=== PATIENT | male | born 1975 | race Hispanic/Latino ===

== ENCOUNTER 2016-10-31 06:34 | Observation (INO) | payer MEDICAID ==
[2016-10-31 06:38] VITALS: BMI 26.6
[2016-10-31] MEDS ORDERED: Sodium Chloride 0.9% 1,000 ML IV STA (07:45)
[2016-10-31] MEDS ORDERED: Morphine 4 mg/ml ISec IVP STA ×2 (07:45→11:23)
--- NOTE | 2016-10-31 07:48 | ED PDOC ---
Arrival/HPI - General Chief Complaint: Abdominal Pain Time Seen by Provider: 10/31/16 07:37 Historian: Patient - History of Present Illness Narrative History of Present Illness (Text): 10/31/16 07:40 Saud Allen Jr is a 41 year old male, whose past medical history includes depression, hypertension, and reflux, who presents to the emergency department complaining of diffuse abdominal pain today. Patient states that he cannot move due to his pain. Patient also notes that he found a little blood in his stool and has been vomiting intermittently. Patient denies any recent travels, alcohol ingestion, fevers, or any other complaint at this time. PMD: Dr. Beverly Time/Duration: 4-6 hours Symptom Onset: Gradual Symptom Course: Unchanged Severity Level: Mild Activities at Onset: Rest Context: Home Past Medical History - Provider Review Nursing Documentation Reviewed: Yes - Infectious Disease Hx of Infectious Diseases: None - Tetanus Immunization Tetanus Immunization: Unknown - Past Medical History Past Medical History: No Previous - Cardiac Hx Pacemaker: No - Pulmonary Hx Respiratory Disorders: No Hx Tuberculosis: No - Neurological Hx Paralysis: No - HEENT Hx HEENT Disorder: No - Renal Hx Renal Disorder: No - Endocrine/Metabolic Hx Endocrine Disorders: No - Hematological/Oncological Hx Blood Transfusions: No Hx Blood Transfusion Reaction: No - Integumentary Hx Dermatological Disorder: No - Musculoskeletal/Rheumatological Hx Musculoskeletal Disorders: Yes (JOINT PAIN) - Gastrointestinal Hx Gastrointestinal Disorders: Yes Hx Gastroesophageal Reflux: Yes - Genitourinary/Gynecological Hx Genitourinary Disorders: No Hx Sexually Transmitted Diseases: No - Psychiatric Hx Emotional Abuse: No Hx Physical Abuse: No Hx Substance Use: No - Surgical History Other/Comment: facial cyst removed - Anesthesia Hx Anesthesia Reactions: No Hx Malignant Hyperthermia: No - Suicidal Assessment Feels Threatened In Home Enviroment: No Family/Social History - Physician Review Nursing Documentation Reviewed: Yes Family/Social History: No Known Family HX Smoking Status: Current Some Days Smoker Hx Alcohol Use: No (PAST ABUSE; QUIT 10/2013) Amount per day: 2 Hx Substance Use: No Substance used: marijuana Hx Substance Use Treatment: No Allergies/Home Meds Allergies/Adverse Reactions: Allergies Sulfa (Sulfonamide Antibiotics) Allergy (Verified 10/31/16 06:38) RASH Home Medications: Home Meds Medication Instructions Recorded Confirmed Lisinopril 10 mg PO DAILY 05/30/14 08/15/15 Doxepin HCl [Doxepin HCl] 150 mg PO QPM 01/10/15 08/15/15 Lamotrigine [Lamictal Odt] 200 mg PO QAM 01/10/15 08/15/15 Mirtazapine 45 mg PO HS 01/10/15 08/15/15 Omeprazole [Prilosec] 40 mg PO DAILY 01/10/15 08/15/15 Zitrasidone 80 mg PO HS 01/10/15 08/15/15 Montelukast [Singulair] 10 mg PO HS 08/15/15 08/15/15 chlorproMAZINE [chlorpromazine HCl] 100 mg PO HS 08/15/15 08/15/15 Review of Systems - Review of Systems Constitutional: absent: Fevers, Night Sweats Eyes: absent: Vision Changes ENT: absent: Hearing Changes Respiratory: absent: SOB, Cough Gastrointestinal: Abdominal Pain, Vomiting, Hematochezia Musculoskeletal: absent: Arthralgias Skin: absent: Rash Neurological: absent: Headache Endocrine: absent: Diaphoresis Psychiatric: absent: Depression Physical Exam Vital Signs Reviewed: Yes Vital Signs Temp Pulse Resp BP Pulse Ox 10/31/16 09:12 90 18 126/75 98 10/31/16 07:13 97.7 F 91 H 16 146/99 H 96 Temperature: Afebrile Blood Pressure: Hypertensive Pulse: Tachycardic Respiratory Rate: Normal Appearance: Positive for: Well-Appearing, Non-Toxic, Comfortable Pain Distress: None Mental Status: Positive for: Alert and Oriented X 3 - Systems Exam Head: Present: Atraumatic, Normocephalic Pupils: Present: PERRL Extroacular Muscles: Present: EOMI Conjunctiva: Present: Normal Mouth: Present: Moist Mucous Membranes Neck: Present: Normal Range of Motion Respiratory/Chest: Present: Clear to Auscultation, Good Air Exchange. No: Respiratory Distress, Accessory Muscle Use Cardiovascular: Present: Regular Rate and Rhythm, Normal S1, S2. No: Murmurs Abdomen: Present: Tenderness (Diffuse tenderness with gaurding, mostly to the left), Guarding. No: Rebound Back: Present: Normal Inspection Upper Extremity: Present: Normal Inspection. No: Cyanosis, Edema Lower Extremity: Present: Normal Inspection. No: Edema Neurological: Present: GCS=15, CN II-XII Intact, Speech Normal Skin: Present: Warm, Dry, Normal Color. No: Rashes Psychiatric: Present: Alert, Oriented x 3, Normal Insight, Normal Concentration Medical Decision Making - Lab Interpretations Lab Results: 10/31/16 08:00 10/31/16 08:00 Lab Results 10/31/16 08:00: WBC 14.9 H, RBC 5.54, Hgb 16.5, Hct 45.9, MCV 82.9, MCH 29.8, MCHC 35.9, RDW 13.4, Plt Count 195, MPV 12.5 H, Gran % 63.3, Lymph % (Auto) 27.6 , Crenshaw % (Auto) 7.6 H, Eos % (Auto) 1.3 L, Baso % (Auto) 0.2, Gran # 9.44 H, Lymph # 4.1 H, Crenshaw # 1.1 H, Eos # 0.2, Baso # 0.03, Sodium 141, Potassium 3.7, Chloride 97 L, Carbon Dioxide 29, Anion Gap 19, BUN 21, Creatinine 0.9, Est GFR ( Amer) > 60, Est GFR (Non-Af Amer) > 60, Random Glucose 151 H, Calcium 10.5, Total Bilirubin 0.5, AST 37, ALT 30, Alkaline Phosphatase 109, Total Protein 8.9 H, Albumin 4.7, Globulin 4.2, Albumin/Globulin Ratio 1.1, Lipase 54 - RAD Interpretation Radiology Orders: 10/31/16 07:47 ABD & PELVIS IV CONTRAST ONLY [CT] Stat - Medication Orders Current Medication Orders: Ciprofloxacin (Cipro 400mg/200ml Dsw) 200 mls @ 133.3 mls/hr IVPB STAT STA PRN Reason: Protocol Stop: 10/31/16 12:28 Last Admin: 10/31/16 11:15 Dose: 133.3 MLS/HR eMAR Start Stop Document 10/31/16 11:15 [facility] (Rec: 10/31/16 11:15 [facility] [id number]) Intravenous Solution Start Date 10/31/16 Start Time 11:15 End Date 10/31/16 End time 12:45 Total Infusion Time 90 Discontinued Medications Famotidine (Pepcid) 20 mg IVP STAT STA Stop: 10/31/16 07:46 Last Admin: 10/31/16 07:52 Dose: 20 MG IVP Administration Document 10/31/16 07:52 [facility] (Rec: 10/31/16 07:52 [facility] [id number]) Charges for Administration # of IVP Administrations 1 Sodium Chloride (Sodium Chloride 0.9%) 1,000 mls @ 1,000 mls/hr IV .Q1H STA Stop: 10/31/16 08:44 Last Admin: 10/31/16 07:52 Dose: 1,000 MLS/HR eMAR Start Stop Document 10/31/16 07:52 [facility] (Rec: 10/31/16 07:52 [facility] [id number]) Intravenous Solution Start Date 10/31/16 Start Time 07:52 End Date 10/31/16 End time 08:55 Total Infusion Time 63 Metronidazole (Flagyl) 100 mls @ 100 mls/hr IVPB STAT STA PRN Reason: Protocol Stop: 10/31/16 11:57 Iohexol (Omnipaque 350 100 Ml) Confirm Administered Dose 350 mg .ROUTE .STK-MED ONE Stop: 10/31/16 09:29 Morphine Sulfate (Morphine) 4 mg IVP STAT STA Stop: 10/31/16 07:46 Last Admin: 10/31/16 07:52 Dose: 4 MG MAR Pain Assessment Document 10/31/16 07:52 [facility] (Rec: 10/31/16 07:52 [facility] [id number]) Pain Reassessment Is this a pain reassessment? Yes Presence of Pain Presence of Pain Yes Pain Scale Used Pain Scale Used Numeric Location Pain Location Body Site Abdomen Description Intensity of Pain at present 5 IVP Administration Document 10/31/16 07:52 [facility] (Rec: 10/31/16 07:52 [facility] [id number]) Charges for Administration # of IVP Administrations 1 Morphine Sulfate (Morphine) 4 mg IVP STAT STA Stop: 10/31/16 11:24 Last Admin: 10/31/16 11:31 Dose: 4 MG MAR Pain Assessment Document 10/31/16 11:31 [facility] (Rec: 10/31/16 11:31 [facility] [id number]) Pain Reassessment Is this a pain reassessment? Yes Sleep Is patient sleeping during reassessment? No Presence of Pain Presence of Pain Yes Pain Scale Used Pain Scale Used Numeric Location Pain Location Body Site Abdomen Description Intensity of Pain at present 7 IVP Administration Document 10/31/16 11:31 [facility] (Rec: 10/31/16 11:31 [facility] [id number]) Charges for Administration # of IVP Administrations 1 ED OBSERVATION Date of observation admission: 10/31/16 Time of observation admission: 07:49 - Observation admission statement Patient is being placed in observation because:: Impression: 41 year old male complaining of diffuse abdominal pain today Differential Diagnosis included but are not limited to: Abdominal pain vs. r/o Diverticulitis, diverticulosis - Goals of Observation Goals of observation are:: Plan: -- Abdomen and Pelvis CT w/ IV Contrast only -- Labs -- Morphine, Pepcid -- IV Fluids - Progress Note Progress Note: 10/31/16 10:48 CT Abdomen and Pelvis with contrast Creator : WILLI LUX MD FINDINGS: LOWER THORAX:There is linear atelectasis/scarring in the lingula. There is bibasilar subsegmental atelectasis. LIVER:Normal in size and homogeneous enhancement. No gross lesion or ductal dilatation. GALLBLADDER AND BILE DUCTS:No calcified gallstones. PANCREAS:Normal in size and homogeneous enhancement. No gross lesion or ductal dilatation. SPLEEN:Normal in size without focal lesion. ADRENALS:Normal in size without discrete nodule. KIDNEYS AND URETERS:Normal in size and homogeneous enhancement. No hydronephrosis. No solid mass. VASCULATURE:Normal in caliber. No aortic aneurysm. BOWEL:The small bowel loops are normal in caliber. There is mild sigmoid diverticulosis. There is apparent mild mural thickening in the sigmoid colon. No evidence of bowel dilatation or obstruction. APPENDIX:Normal appendix. PERITONEUM:No free fluid. No free air. LYMPH NODES:No enlarged lymph nodes. BLADDER:Normal in appearance. REPRODUCTIVE:Normal. BONES:No acute fracture. There are multilevel Schmorl's nodes in the lower thoracic spine. OTHER FINDINGS:There are bilateral small fat containing inguinal hernias. IMPRESSION: Findings are concerning for mild acute sigmoid diverticulitis. No evidence of perforation or abscess 10/31/16 11:16 Patient's pain improved with pain medication but is not having pain again. Morphine IV ordered. CT shows Diverticulitis. Patient has an elevated WBC. Will admit for diverticulitis. Case discussed with Dr. Magana who will admit to the service. - Scribe Statement The provider has reviewed the documentation as recorded by the Rosio Ta Provider Scribe Attestation: All medical record entries made by the Elkinibe were at my direction and personally dictated by me. I have reviewed the chart and agree that the record accurately reflects my personal performance of the history, physical exam, medical decision making, and the department course for this patient. I have also personally directed, reviewed, and agree with the discharge instructions and disposition. Disposition/Present on Arrival - Present on Arrival Any Indicators Present on Arrival: No History of DVT/PE: No History of Uncontrolled Diabetes: No Urinary Catheter: No History of Decub. Ulcer: No History Surgical Site Infection Following: None - Disposition Have Diagnosis and Disposition been Completed?: Yes Diagnosis: Diverticulitis Disposition Time: 11:17 Patient Plan: Admission Patient Problems: Current Active Problems Problem Status Diagnosed Diverticulitis Acute Condition: FAIR
[2016-10-31 08:08] LABS: ADD MANUAL DIFF? NO
[2016-10-31 08:21] LABS: BASO # 0.03 [, K/mm3] (0.0-2.0); BASO % 0.2 % (0.0-3.0); EOS # 0.2 (0.0-0.7); EOS % 1.3 % (1.5-5.0); GRAN # 9.44 (1.4-6.5); GRAN % 63.3 % (50.0-68.0); HEMATOCRIT 45.9 % (42.0-52.0); LYMPH # 4.1 (1.2-3.4); LYMPH % 27.6 % (22.0-35.0); MEAN CELL VOLUME 82.9 fL (80.0-105.0); MEAN CORPUSCULAR HEMOGLOBIN 29.8 pg (25.0-35.0); MEAN CORPUSCULAR HGB CONC 35.9 g/dl (31.0-37.0); MEAN PLATELET VOLUME 12.5 fl (7.0-11.0); MONO # 1.1 (0.1-0.6); MONO % 7.6 % (1.0-6.0); PLATELET COUNT 195 [, 10^3/uL] (120.0-450.0); RED CELL DISTRIBUTION WIDTH 13.4 % (11.5-14.5); WHITE BLOOD COUNT 14.9 [, 10^3/ul] (4.5-11.0)
[2016-10-31 08:35] LABS: ALB/GLOB RATIO 1.1 (1.1-1.8); ALKALINE PHOSPHATASE 109 U/L (38-133); ALT/SGPT 30 U/L (7-56); AST/SGOT 37 U/L (15-59); BILIRUBIN,TOTAL 0.5 mg/dL (0.2-1.3); BLOOD UREA NITROGEN 21 mg/dL (7-21); CALCIUM 10.5 mg/dL (8.4-10.5); CARBON DIOXIDE 29 mmol/L (21-33); CHLORIDE 97 mmol/L (98-107); GFR AFRICAN-AMERICAN > 60; GLUCOSE,RANDOM 151 mg/dL (70-110); LIPASE 54 U/L (23-300); POTASSIUM 3.7 mmol/L (3.6-5.0); SODIUM 141 mmol/L (132-148); TOTAL PROTEIN 8.9 g/dL (5.8-8.3)
[2016-10-31] MEDS ORDERED: Iohexol 350 MG/100 ML VIAL ONE (09:28)
--- NOTE | 2016-10-31 10:42 | CT ---
PROCEDURE: CT Abdomen and Pelvis with contrast HISTORY: Left abdominal pain r/o diverticulitis COMPARISON: None. TECHNIQUE: Multidetector CT scan of the abdomen and pelvis was performed after intravenous administration of contrast. Oral contrast was not administered. Coronal and sagittal reformatted images were obtained. Contrast dose: 100 mL Omnipaque 350 Radiation dose: Total exam DLP = 675.14 mGy-cm. FINDINGS: LOWER THORAX: There is linear atelectasis/scarring in the lingula. There is bibasilar subsegmental atelectasis. LIVER: Normal in size and homogeneous enhancement. No gross lesion or ductal dilatation. GALLBLADDER AND BILE DUCTS: No calcified gallstones. PANCREAS: Normal in size and homogeneous enhancement. No gross lesion or ductal dilatation. SPLEEN: Normal in size without focal lesion. ADRENALS: Normal in size without discrete nodule. KIDNEYS AND URETERS: Normal in size and homogeneous enhancement. No hydronephrosis. No solid mass. VASCULATURE: Normal in caliber. No aortic aneurysm. BOWEL: The small bowel loops are normal in caliber. There is mild sigmoid diverticulosis. There is apparent mild mural thickening in the sigmoid colon. No evidence of bowel dilatation or obstruction. APPENDIX: Normal appendix. PERITONEUM: No free fluid. No free air. LYMPH NODES: No enlarged lymph nodes. BLADDER: Normal in appearance. REPRODUCTIVE: Normal. BONES: No acute fracture. There are multilevel Schmorl's nodes in the lower thoracic spine. OTHER FINDINGS: There are bilateral small fat containing inguinal hernias. IMPRESSION: Findings are concerning for mild acute sigmoid diverticulitis. No evidence of perforation or abscess.
[2016-10-31] MEDS ORDERED: Ciprofloxacin 400mg/200ml D5W 200 ML IVPB STA (10:58)
[2016-10-31] MEDS ORDERED: metroNIDAZOLE IV 500 mg/100 ml 100 ML IVPB STA (10:58)
--- NOTE | 2016-10-31 12:15 | CP.PCM.HP ---
<Suhail Quintanilla - Last Filed: 10/31/16 20:25> History of Present Illness - History of Present Illness History of Present Illness: 41M with pmh of depression, psychosis, alcohol abuse presents with sharp, diffuse lower abdominal pain since this morning that woke him up. The pain is constant and does not radiate. He has had this pain before, but it resolved on its own. He also complains of nausea, vomiting and a BM with bright blood mixed in with his stool. Stool guaic was positive in the ED. Pt. states he has not had a drink of alcohol in 3 years. He denies PERALTA/F/C/CP/SOB/dysuria. PMD: Dr. Beverly [facility] [place] PMH: Depression, Psychosis SH: -not currently working -Tob 1/2 pack/day/20 years -Alc quit 3 years ago -Drugs denies Present on Admission - Present on Admission Any Indicators Present on Admission: No Review of Systems - Constitutional Constitutional: absent: Fever, Headache, Night Sweats - EENT Eyes: absent: Change in Vision Ears: absent: Decreased Hearing Nose/Mouth/Throat: Nasal Congestion. absent: Epistaxis - Cardiovascular Cardiovascular: absent: Chest Pain, Chest Pain at Rest, Dyspnea - Respiratory Respiratory: absent: Hemoptysis, Dyspnea on Exertion, Wheezing, Chest Congestion - Gastrointestinal Gastrointestinal: Abdominal Pain (lower abdominal pain that radiates to his back.), Constipation, Diarrhea. absent: Hematochezia, Loose Stools - Genitourinary Genitourinary: absent: Difficulty Urinating, Dysuria, Flank Pain, Pyuria - Musculoskeletal Musculoskeletal: absent: Back Pain, Neck Pain, Numbness, Tingling - Integumentary Integumentary: absent: Rash, Skin Pain, Jaundice - Neurological Neurological: absent: Dizziness - Psychiatric Psychiatric: Depression - Endocrine Endocrine: absent: Fatigue, Palpitations, Polydipsia, Polyuria Past Patient History - Infectious Disease Hx of Infectious Diseases: None - Tetanus Immunizations Tetanus Immunization: Unknown - Past Medical History & Family History Past Medical History?: Yes - Past Social History Smoking Status: Heavy Smoker > 10 Cigarettes Daily Alcohol: None (quit 3 years ago) Drugs: Denies - CARDIAC Hx Pacemaker: No - PULMONARY Hx Respiratory Disorders: No Hx Tuberculosis: No - NEUROLOGICAL Hx Paralysis: No - HEENT Hx HEENT Problems: No - RENAL Hx Chronic Kidney Disease: No - ENDOCRINE/METABOLIC Hx Endocrine Disorders: No - HEMATOLOGICAL/ONCOLOGICAL Hx Blood Transfusions: No Hx Blood Transfusion Reaction: No - INTEGUMENTARY Hx Dermatological Problems: No - MUSCULOSKELETAL/RHEUMATOLOGICAL Hx Musculoskeletal Disorders: Yes (JOINT PAIN) - GASTROINTESTINAL Hx Gastrointestinal Disorders: Yes Hx Gastroesophageal Reflux: Yes - GENITOURINARY/GYNECOLOGICAL Hx Genitourinary Disorders: No Hx Sexually Transmitted Disorders: No - PSYCHIATRIC Hx Depression: Yes Hx Emotional Abuse: No Hx Psychosis: Yes Hx Physical Abuse: No Hx Substance Use: No - SURGICAL HISTORY Other/Comment: facial cyst removed - ANESTHESIA Hx Anesthesia Reactions: No Hx Malignant Hyperthermia: No Meds Home Medications: Home Medication List Medication Instructions Recorded Confirmed Type Ciprofloxacin HCl [Cipro] 500 mg PO BID #10 tablet 11/01/16 Rx Metronidazole [Flagyl] 500 mg PO Q8 #15 tablet 11/01/16 Rx Pantoprazole Sodium [Protonix] 40 mg PO DAILY #30 ect 11/01/16 Rx Allergies/Adverse Reactions: Allergies Allergy/AdvReac Type Severity Reaction Status Date / Time Sulfa (Sulfonamide Allergy RASH Verified 10/31/16 15:35 Antibiotics) Physical Exam - Constitutional Appears: No Acute Distress - Head Exam Head Exam: ATRAUMATIC, NORMOCEPHALIC - Eye Exam Eye Exam: EOMI - ENT Exam ENT Exam: Mucous Membranes Moist - Respiratory Exam Respiratory Exam: Clear to Auscultation Bilateral, NORMAL BREATHING PATTERN. absent: Rhonchi, Wheezes - Cardiovascular Exam Cardiovascular Exam: REGULAR RHYTHM, RRR, +S1, +S2 - GI/Abdominal Exam GI & Abdominal Exam: Guarding, Normal Bowel Sounds, Soft, Tenderness (lower abdomen). absent: Rebound - Extremities Exam Extremities exam: Positive for: full ROM. Negative for: joint swelling, pedal edema, tenderness - Back Exam Back exam: absent: CVA tenderness (L), CVA tenderness (R) - Neurological Exam Neurological exam: Alert, Oriented x3 - Psychiatric Exam Psychiatric exam: Normal Affect, Normal Mood - Skin Skin Exam: Dry, Intact, Normal Color, Warm Results - Vital Signs Recent Vital Signs: Last Vital Signs Temp 97.7 F 10/31/16 07:13 Pulse 90 10/31/16 09:12 Resp 18 10/31/16 09:12 BP 126/75 10/31/16 09:12 Pulse Ox 98 10/31/16 09:12 - Labs Result Diagrams: 10/31/16 08:00 10/31/16 08:00 Assessment & Plan - Assessment and Plan (Free Text) Assessment: 41M presents with lower abdominal pain that woke him up this morning. Diverticulitis vs Diverticulosis vs Pancreatitis Plan: Abdominal Pain -GI Consult - Dr. Mendez -CT Abd/Pelvis with IV contrast -concerning for mild acute sigmoid diverticulitis, please see full report -AST, ALT, Alk Phos, Lipase all within normal limits -Morphine 2mg q4 -IV NS 100mls/hr -Zofran 4mg q4 -Liquid Diet Leukocytosis -Blood Cultures -UA -Metronidazole IV q8 -Ceftriaxone IV Psychosis/Depression -Mirtazapine 45mg QHS -Lamotrigine 200mg QHS -Quetiapine 600mg QHS PPX -GI Pepcid -DVT SCD's - Date & Time Date: 10/31/16 Time: 01:35 <Rayna Magana - Last Filed: 11/01/16 11:29> Results - Vital Signs Recent Vital Signs: Last Vital Signs Temp 97.7 F 11/01/16 08:00 Pulse 89 11/01/16 08:00 Resp 20 11/01/16 08:00 BP 115/67 11/01/16 08:00 Pulse Ox 97 11/01/16 08:00 - Labs Result Diagrams: 11/01/16 07:45 11/01/16 07:45 Labs: Laboratory Results - last 24 hr 10/31/16 11/01/16 19:40 07:45 WBC 9.3 D RBC 5.32 Hgb 15.3 Hct 43.8 MCV 82.3 MCH 28.8 MCHC 34.9 RDW 13.5 Plt Count 197 MPV 11.6 H Gran % 48.6 L Lymph % (Auto) 41.7 H Loving % (Auto) 7.5 H Eos % (Auto) 1.9 Baso % (Auto) 0.3 Gran # 4.53 Lymph # 3.9 H Loving # 0.7 H Eos # 0.2 Baso # 0.03 Sodium 140 Potassium 3.7 Chloride 103 Carbon Dioxide 27 Anion Gap 14 BUN 10 Creatinine 0.9 Est GFR ( Amer) > 60 Est GFR (Non-Af Amer) > 60 Random Glucose 102 Calcium 8.9 Total Bilirubin 0.8 AST 28 ALT 24 Alkaline Phosphatase 92 Total Protein 7.5 Albumin 4.0 Globulin 3.5 Albumin/Globulin Ratio 1.1 Urine Color Yellow Urine Appearance Clear Urine pH 6.0 Ur Specific Gilbert 1.025 Urine Protein Negative Urine Glucose (UA) Negative Urine Ketones Negative Urine Blood Negative Urine Nitrate Negative Urine Bilirubin Negative Urine Urobilinogen 0.2 Ur Leukocyte Esterase Negative Urine Opiates Screen Positive H Urine Methadone Screen Negative Ur Barbiturates Screen Negative Ur Phencyclidine Scrn Negative Ur Amphetamines Screen Negative U Benzodiazepines Scrn Negative U Oth Cocaine Metabols Negative U Cannabinoids Screen Negative Assessment & Plan - Assessment and Plan (Free Text) Assessment: Attending note; Patient seen and examined with resident in ER. Patient is a 41-year-old male with a history of alcohol abuse, Garrison's esophagus, depression is admitted with left lower quadrant pain. CT consistent with mild acute diverticulitis. Nothing by mouth. IV fluids. Started on IV Rocephin and Flagyl. GI evaluation with Dr. Kearney. Start clear liquid diet and advance as tolerated. Upon discharge the patient will follow up with PMD Dr. Beverly. Follow-up with GI Dr. Kearney for outpatient EGD/colonoscopy if needed. Attending/Attestation - Attestation I have personally seen and examined this patient.: Yes I have fully participated in the care of the patient.: Yes I have reviewed all pertinent clinical information: Yes
--- NOTE | 2016-10-31 12:42 | CP.PCM.HP ---
History of Present Illness - History of Present Illness History of Present Illness: 41M with pmh of c/o sharp abdominal Past Patient History - Infectious Disease Hx of Infectious Diseases: None - Tetanus Immunizations Tetanus Immunization: Unknown - Past Social History Smoking Status: Current Some Days Smoker - CARDIAC Hx Pacemaker: No - PULMONARY Hx Respiratory Disorders: No Hx Tuberculosis: No - NEUROLOGICAL Hx Paralysis: No - HEENT Hx HEENT Problems: No - RENAL Hx Chronic Kidney Disease: No - ENDOCRINE/METABOLIC Hx Endocrine Disorders: No - HEMATOLOGICAL/ONCOLOGICAL Hx Blood Transfusions: No Hx Blood Transfusion Reaction: No - INTEGUMENTARY Hx Dermatological Problems: No - MUSCULOSKELETAL/RHEUMATOLOGICAL Hx Musculoskeletal Disorders: Yes (JOINT PAIN) - GASTROINTESTINAL Hx Gastrointestinal Disorders: Yes Hx Gastroesophageal Reflux: Yes - GENITOURINARY/GYNECOLOGICAL Hx Genitourinary Disorders: No Hx Sexually Transmitted Disorders: No - PSYCHIATRIC Hx Emotional Abuse: No Hx Physical Abuse: No Hx Substance Use: No - SURGICAL HISTORY Other/Comment: facial cyst removed - ANESTHESIA Hx Anesthesia Reactions: No Hx Malignant Hyperthermia: No Meds Allergies/Adverse Reactions: Allergies Allergy/AdvReac Type Severity Reaction Status Date / Time Sulfa (Sulfonamide Allergy RASH Verified 10/31/16 06:38 Antibiotics) Results - Vital Signs Recent Vital Signs: Last Vital Signs Temp 97.7 F 10/31/16 07:13 Pulse 92 H 10/31/16 12:24 Resp 18 10/31/16 12:24 BP 147/85 10/31/16 12:24 Pulse Ox 96 10/31/16 12:24 - Labs Result Diagrams: 10/31/16 08:00 10/31/16 08:00
[2016-10-31] MEDS ORDERED: cefTRIAXone 1 gm 100 ML IVPB SCH (13:00)
[2016-10-31] MEDS: metroNIDAZOLE IV 500 mg/100 ml 100 ML IVPB SCH ×2 (13:59→21:00)
[2016-10-31] MEDS: Sodium Chloride 0.9% 1,000 ML IV SCH (13:59)
[2016-10-31] MEDS: Morphine 2 mg/ml ISec IVP PRN ×2 (15:37→20:01)
[2016-10-31] MEDS ORDERED: Pneumococcal 23-Valent Vaccine IM ONE (16:10)
[2016-10-31] MEDS ORDERED: Influenza Vaccine 45 MCG/0.5 ml IM ONE (16:10)
[2016-10-31 16:35] VITALS: RESP 20
[2016-10-31 21:16] LABS: URINE BILIRUBIN NEGATIVE (NEGATIVE); URINE BLOOD NEGATIVE (NEGATIVE); URINE GLUCOSE (UA) NEGATIVE (NEGATIVE); URINE KETONE NEGATIVE (NEGATIVE); URINE LEUKOCYTE ESTERASE NEGATIVE Leu/uL (NEGATIVE); URINE PROTEIN NEGATIVE mg/dL (<30 mg/dL); URINE UROBILINOGEN 0.2 E.U./dL (<1 E.U./dL)
[2016-10-31 21:19] LABS: URINE APPEARANCE CLEAR (CLEAR); URINE COLOR YELLOW (YELLOW)
[2016-11-01] MEDS: Morphine 2 mg/ml ISec IVP PRN ×2 (00:13→05:49)
[2016-11-01] MEDS: Sodium Chloride 0.9% 1,000 ML IV SCH (01:33)
[2016-11-01] MEDS: metroNIDAZOLE IV 500 mg/100 ml 100 ML IVPB SCH (05:45)
[2016-11-01 08:01] VITALS: BP 115/67; PULSE 89; TEMP 97.7; O2SAT 97
[2016-11-01 08:12] LABS: ADD MANUAL DIFF? NO
[2016-11-01 08:18] LABS: BASO # 0.03 [, K/mm3] (0.0-2.0); BASO % 0.3 % (0.0-3.0); EOS # 0.2 (0.0-0.7); EOS % 1.9 % (1.5-5.0); GRAN # 4.53 (1.4-6.5); GRAN % 48.6 % (50.0-68.0); HEMATOCRIT 43.8 % (42.0-52.0); LYMPH # 3.9 (1.2-3.4); LYMPH % 41.7 % (22.0-35.0); MEAN CELL VOLUME 82.3 fL (80.0-105.0); MEAN CORPUSCULAR HEMOGLOBIN 28.8 pg (25.0-35.0); MEAN CORPUSCULAR HGB CONC 34.9 g/dl (31.0-37.0); MEAN PLATELET VOLUME 11.6 fl (7.0-11.0); MONO # 0.7 (0.1-0.6); MONO % 7.5 % (1.0-6.0); PLATELET COUNT 197 [, 10^3/uL] (120.0-450.0); RED CELL DISTRIBUTION WIDTH 13.5 % (11.5-14.5); WHITE BLOOD COUNT 9.3 [, 10^3/ul] (4.5-11.0)
--- NOTE | 2016-11-01 08:30 | CP.PCM.DIS ---
Provider - Provider Date of Admission: 10/31/16 11:29 Attending physician: Rayna Magana MD Primary care physician: Katherine Beverly DO Consults: KATHIA: Andrea Time Spent in preparation of Discharge (in minutes): 45 Hospital Course - Lab Results Lab Results: Most Recent Lab Values WBC 9.3 10^3/ul (4.5-11.0) D 11/01/16 07:45 RBC 5.32 10^6/uL (3.5-6.1) 11/01/16 07:45 Hgb 15.3 gm/dL (14.0-18.0) 11/01/16 07:45 Hct 43.8 % (42.0-52.0) 11/01/16 07:45 MCV 82.3 fL (80.0-105.0) 11/01/16 07:45 MCH 28.8 pg (25.0-35.0) 11/01/16 07:45 MCHC 34.9 g/dl (31.0-37.0) 11/01/16 07:45 RDW 13.5 % (11.5-14.5) 11/01/16 07:45 Plt Count 197 10^3/uL (120.0-450.0) 11/01/16 07:45 MPV 11.6 fl (7.0-11.0) H 11/01/16 07:45 Gran % 48.6 % (50.0-68.0) L 11/01/16 07:45 Lymph % (Auto) 41.7 % (22.0-35.0) H 11/01/16 07:45 [place] % (Auto) 7.5 % (1.0-6.0) H 11/01/16 07:45 Eos % (Auto) 1.9 % (1.5-5.0) 11/01/16 07:45 Baso % (Auto) 0.3 % (0.0-3.0) 11/01/16 07:45 Gran # 4.53 (1.4-6.5) 11/01/16 07:45 Lymph # 3.9 (1.2-3.4) H 11/01/16 07:45 [place] # 0.7 (0.1-0.6) H 11/01/16 07:45 Eos # 0.2 (0.0-0.7) 11/01/16 07:45 Baso # 0.03 K/mm3 (0.0-2.0) 11/01/16 07:45 Sodium 141 mmol/L (132-148) 10/31/16 08:00 Potassium 3.7 mmol/L (3.6-5.0) 10/31/16 08:00 Chloride 97 mmol/L (98-107) L 10/31/16 08:00 Carbon Dioxide 29 mmol/L (21-33) 10/31/16 08:00 Anion Gap 19 (10-20) 10/31/16 08:00 BUN 21 mg/dL (7-21) 10/31/16 08:00 Creatinine 0.9 mg/dL (0.5-1.4) 10/31/16 08:00 Est GFR ( Amer) > 60 10/31/16 08:00 Est GFR (Non-Af Amer) > 60 10/31/16 08:00 Random Glucose 151 mg/dL (70-110) H 10/31/16 08:00 Calcium 10.5 mg/dL (8.4-10.5) 10/31/16 08:00 Total Bilirubin 0.5 mg/dL (0.2-1.3) 10/31/16 08:00 AST 37 U/L (15-59) 10/31/16 08:00 ALT 30 U/L (7-56) 10/31/16 08:00 Alkaline Phosphatase 109 U/L (38-133) 10/31/16 08:00 Total Protein 8.9 g/dL (5.8-8.3) H 10/31/16 08:00 Albumin 4.7 g/dL (3.0-4.8) 10/31/16 08:00 Globulin 4.2 gm/dL 10/31/16 08:00 Albumin/Globulin Ratio 1.1 (1.1-1.8) 10/31/16 08:00 Lipase 54 U/L (23-300) 10/31/16 08:00 Urine Color Yellow (YELLOW) 10/31/16 19:40 Urine Appearance Clear (CLEAR) 10/31/16 19:40 Urine pH 6.0 (4.7-8.0) 10/31/16 19:40 Ur Specific [place] 1.025 (1.005-1.035) 10/31/16 19:40 Urine Protein Negative mg/dL (<30 mg/dL) 10/31/16 19:40 Urine Glucose (UA) Negative mg/dL (NEGATIVE) 10/31/16 19:40 Urine Ketones Negative mg/dL (NEGATIVE) 10/31/16 19:40 Urine Blood Negative (NEGATIVE) 10/31/16 19:40 Urine Nitrate Negative (NEGATIVE) 10/31/16 19:40 Urine Bilirubin Negative (NEGATIVE) 10/31/16 19:40 Urine Urobilinogen 0.2 E.U./dL (<1 E.U./dL) 10/31/16 19:40 Ur Leukocyte Esterase Negative Miguelito/uL (NEGATIVE) 10/31/16 19:40 Urine Opiates Screen Positive (NEGATIVE) H 10/31/16 19:40 Urine Methadone Screen Negative (NEGATIVE) 10/31/16 19:40 Ur Barbiturates Screen Negative (NEGATIVE) 10/31/16 19:40 Ur Phencyclidine Scrn Negative (NEGATIVE) 10/31/16 19:40 Ur Amphetamines Screen Negative (NEGATIVE) 10/31/16 19:40 U Benzodiazepines Scrn Negative (NEGATIVE) 10/31/16 19:40 U Oth Cocaine Metabols Negative (NEGATIVE) 10/31/16 19:40 U Cannabinoids Screen Negative (NEGATIVE) 10/31/16 19:40 Discharge Exam - Head Exam Head Exam: ATRAUMATIC, NORMOCEPHALIC Discharge Plan - Discharge Medications Prescriptions: Ciprofloxacin HCl [Cipro] 500 mg PO BID #10 tablet Metronidazole [Flagyl] 500 mg PO Q8 #15 tablet Pantoprazole Sodium [Protonix] 40 mg PO DAILY #30 ect - Follow Up Plan Condition: FAIR Disposition: HOME/ ROUTINE Instructions: Pneumococcal Vaccine for Adults (DC), Influenza Vaccine (DC), Abdominal Pain (ED) Additional Instructions: Patient is cleared for discharge as per Dr. Bradley 1. Patient to follow up with his PMD within one week. 2. Follow up with KATHIA Harp. For out-patient EGD 3. Take all antibiotics as directed, as prescribed. 4. Resume all home meds. 5. Return to the ER with any concerning symptoms New Prescriptions: 1. Cipro 500mg PO BID #10/0 2. Flagyl 500mg PO TID #15/0 3. Protonix 40mg PO Daily #30/0 Referrals: Zachariah Kearney MD [Staff Provider] - Katherine Beverly DO [Primary Care Provider] -
[2016-11-01 08:34] LABS: ALB/GLOB RATIO 1.1 (1.1-1.8); ALKALINE PHOSPHATASE 92 U/L (38-133); ALT/SGPT 24 U/L (7-56); AST/SGOT 28 U/L (15-59); BILIRUBIN,TOTAL 0.8 mg/dL (0.2-1.3); BLOOD UREA NITROGEN 10 mg/dL (7-21); CALCIUM 8.9 mg/dL (8.4-10.5); CARBON DIOXIDE 27 mmol/L (21-33); CHLORIDE 103 mmol/L (98-107); GFR AFRICAN-AMERICAN > 60; GLUCOSE,RANDOM 102 mg/dL (70-110); POTASSIUM 3.7 mmol/L (3.6-5.0); SODIUM 140 mmol/L (132-148); TOTAL PROTEIN 7.5 g/dL (5.8-8.3)
--- NOTE | 2016-11-01 13:19 | CP.PCM.CON ---
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 Pain was sudden/severe in onset, located in the LLQ/RLQ and has since resolved. He denied any history of diarrhea, constipation but did have episodes of nausea with sparse emesis. Separately, he notes that he has been having bright red blood on the toilet paper and in the toilet water after bowel movements for the past week. He is unsure if he ever had colonoscopy but has had multiple EGDs. Denies any fever, chills, weight loss. PMHx: See HPI PSHx: Denies FHx: Denies Social: 1/2ppd for 20 years, EtOH use but sober 3 years Endo: EGD - 08/2015 showing Garrison's esophagus (C6M8 by Wentworth criteria) without dysplasia Review of Systems - Constitutional Constitutional: absent: Anorexia, Chills, Weight Loss - EENT Eyes: absent: Change in Vision Nose/Mouth/Throat: absent: Sore Throat - Cardiovascular Cardiovascular: absent: Chest Pain, Dyspnea, Edema - Respiratory Respiratory: absent: Cough, Dyspnea, Excessive Mucous Production - Gastrointestinal Gastrointestinal: Hematochezia. absent: Abdominal Pain, Bloating, Change in Stool Character, Cramping, Diarrhea, Dyspepsia, Dysphagia, Hematemesis, Loose Stools, Melena, Nausea, Vomiting - Genitourinary Genitourinary: absent: Dysuria, Urinary Frequency, Urinary Urgency - Musculoskeletal Musculoskeletal: absent: Back Pain, Neck Pain - Integumentary Integumentary: absent: New Lesions, Rash - Neurological Neurological: absent: Dizziness, Numbness, Focal Weakness - Psychiatric Psychiatric: absent: Anxiety, Depression - Endocrine Endocrine: absent: Polydipsia, Polyphagia, Polyuria - Hematologic/Lymphatic Hematologic: absent: Easy Bleeding, Easy Bruising, Lymphadenopathy Past Patient History - Infectious Disease Hx of Infectious Diseases: None - Tetanus Immunizations Tetanus Immunization: Unknown - Past Medical History & Family History Past Medical History?: Yes - Past Social History Smoking Status: Heavy Smoker > 10 Cigarettes Daily Alcohol: None (quit 3 years ago) Drugs: Denies - CARDIAC Hx Pacemaker: No - PULMONARY Hx Respiratory Disorders: No Hx Tuberculosis: No - NEUROLOGICAL Hx Paralysis: No - HEENT Hx HEENT Problems: No - RENAL Hx Chronic Kidney Disease: No - ENDOCRINE/METABOLIC Hx Endocrine Disorders: No - HEMATOLOGICAL/ONCOLOGICAL Hx Blood Transfusions: No Hx Blood Transfusion Reaction: No - INTEGUMENTARY Hx Dermatological Problems: No - MUSCULOSKELETAL/RHEUMATOLOGICAL Hx Musculoskeletal Disorders: Yes (JOINT PAIN) - GASTROINTESTINAL Hx Gastrointestinal Disorders: Yes Hx Gastroesophageal Reflux: Yes - GENITOURINARY/GYNECOLOGICAL Hx Genitourinary Disorders: No Hx Sexually Transmitted Disorders: No - PSYCHIATRIC Hx Depression: Yes Hx Emotional Abuse: No Hx Psychosis: Yes Hx Physical Abuse: No Hx Substance Use: No - SURGICAL HISTORY Other/Comment: facial cyst removed - ANESTHESIA Hx Anesthesia Reactions: No Hx Malignant Hyperthermia: No Meds Home Medications: Home Medication List Medication Instructions Recorded Confirmed Type Ciprofloxacin HCl [Cipro] 500 mg PO BID #10 tablet 11/01/16 Rx Metronidazole [Flagyl] 500 mg PO Q8 #15 tablet 11/01/16 Rx Pantoprazole Sodium [Protonix] 40 mg PO DAILY #30 ect 11/01/16 Rx Allergies/Adverse Reactions: Allergies Allergy/AdvReac Type Severity Reaction Status Date / Time Sulfa (Sulfonamide Allergy RASH Verified 10/31/16 15:35 Antibiotics) Physical Exam - Constitutional Appears: Non-toxic, No Acute Distress - Eye Exam Eye Exam: EOMI, PERRL - ENT Exam ENT Exam: Mucous Membranes Moist - Respiratory Exam Respiratory Exam: Clear to Auscultation Bilateral. absent: Rales, Rhonchi, Wheezes - Cardiovascular Exam Cardiovascular Exam: RRR, +S1, +S2 - GI/Abdominal Exam GI & Abdominal Exam: Normal Bowel Sounds, Soft. absent: Distended, Firm, Guarding, Hernia, Organomegaly, Tenderness - Rectal Exam Rectal Exam: Hemorrhoids (internal). absent: Black Stool, Bloody Stool - Extremities Exam Extremities exam: Positive for: normal inspection. Negative for: pedal edema - Neurological Exam Neurological exam: Alert, Oriented x3 - Psychiatric Exam Psychiatric exam: Normal Affect, Normal Mood - Skin Skin Exam: Dry, Warm Results - Vital Signs Recent Vital Signs: Last Vital Signs Temp 97.7 F 11/01/16 08:00 Pulse 89 11/01/16 08:00 Resp 20 11/01/16 08:00 BP 115/67 11/01/16 08:00 Pulse Ox 97 11/01/16 08:00 - Labs Result Diagrams: 11/01/16 07:45 11/01/16 07:45 Labs: Laboratory Results - last 24 hr 10/31/16 11/01/16 19:40 07:45 WBC 9.3 D RBC 5.32 Hgb 15.3 Hct 43.8 MCV 82.3 MCH 28.8 MCHC 34.9 RDW 13.5 Plt Count 197 MPV 11.6 H Gran % 48.6 L Lymph % (Auto) 41.7 H [place] % (Auto) 7.5 H Eos % (Auto) 1.9 Baso % (Auto) 0.3 Gran # 4.53 Lymph # 3.9 H [place] # 0.7 H Eos # 0.2 Baso # 0.03 Sodium 140 Potassium 3.7 Chloride 103 Carbon Dioxide 27 Anion Gap 14 BUN 10 Creatinine 0.9 Est GFR ( Amer) > 60 Est GFR (Non-Af Amer) > 60 Random Glucose 102 Calcium 8.9 Total Bilirubin 0.8 AST 28 ALT 24 Alkaline Phosphatase 92 Total Protein 7.5 Albumin 4.0 Globulin 3.5 Albumin/Globulin Ratio 1.1 Urine Color Yellow Urine Appearance Clear Urine pH 6.0 Ur Specific [place] 1.025 Urine Protein Negative Urine Glucose (UA) Negative Urine Ketones Negative Urine Blood Negative Urine Nitrate Negative Urine Bilirubin Negative Urine Urobilinogen 0.2 Ur Leukocyte Esterase Negative Urine Opiates Screen Positive H Urine Methadone Screen Negative Ur Barbiturates Screen Negative Ur Phencyclidine Scrn Negative Ur Amphetamines Screen Negative U Benzodiazepines Scrn Negative U Oth Cocaine Metabols Negative U Cannabinoids Screen Negative Assessment & Plan - Assessment and Plan (Free Text) Assessment: Patient is a 41yo male with PMHx significant for EtOH abuse, depression, GERD, 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 Plan: -Patient to be discharged per primary service -Recommend outpatient follow up for eventual colonoscopy 6-8 wks after resolution of symptoms -Does not need repeat EGD until 2019 as his BE bxs showed no dysplasia - Date & Time Date: 11/01/16 Time: 07:15 <Sara Mendez - Last Filed: 11/01/16 13:59> Results - Vital Signs Recent Vital Signs: Last Vital Signs Temp 97.7 F 11/01/16 08:00 Pulse 89 11/01/16 08:00 Resp 20 11/01/16 08:00 BP 115/67 11/01/16 08:00 Pulse Ox 97 11/01/16 08:00 - Labs Result Diagrams: 11/01/16 07:45 11/01/16 07:45 Labs: Laboratory Results - last 24 hr 10/31/16 11/01/16 19:40 07:45 WBC 9.3 D RBC 5.32 Hgb 15.3 Hct 43.8 MCV 82.3 MCH 28.8 MCHC 34.9 RDW 13.5 Plt Count 197 MPV 11.6 H Gran % 48.6 L Lymph % (Auto) 41.7 H [place] % (Auto) 7.5 H Eos % (Auto) 1.9 Baso % (Auto) 0.3 Gran # 4.53 Lymph # 3.9 H [place] # 0.7 H Eos # 0.2 Baso # 0.03 Sodium 140 Potassium 3.7 Chloride 103 Carbon Dioxide 27 Anion Gap 14 BUN 10 Creatinine 0.9 Est GFR ( Amer) > 60 Est GFR (Non-Af Amer) > 60 Random Glucose 102 Calcium 8.9 Total Bilirubin 0.8 AST 28 ALT 24 Alkaline Phosphatase 92 Total Protein 7.5 Albumin 4.0 Globulin 3.5 Albumin/Globulin Ratio 1.1 Urine Color Yellow Urine Appearance Clear Urine pH 6.0 Ur Specific [place] 1.025 Urine Protein Negative Urine Glucose (UA) Negative Urine Ketones Negative Urine Blood Negative Urine Nitrate Negative Urine Bilirubin Negative Urine Urobilinogen 0.2 Ur Leukocyte Esterase Negative Urine Opiates Screen Positive H Urine Methadone Screen Negative Ur Barbiturates Screen Negative Ur Phencyclidine Scrn Negative Ur Amphetamines Screen Negative U Benzodiazepines Scrn Negative U Oth Cocaine Metabols Negative U Cannabinoids Screen Negative Attending/Attestation - Attestation I have personally seen and examined this patient.: Yes I have fully participated in the care of the patient.: Yes I have reviewed all pertinent clinical information: Yes Notes (Text): Patient seen and examined. Agree with note as documented above with the following additions/exceptions. This is a 41 year old male with h/o ETOH use, long segment non dysplastic Garrison's esophagus who is admitted with abdominal pain due to acute uncomplicated diverticulitis. He feels better today and is tolerating diet. Pain is controlled. Would continue antibiotic therapy. He will need outpatient GI follow up with Dr. Kearney for colonoscopy in 6-8 weeks after resolution of acute symptoms. 11/01/16 13:57
== END 2016-11-01 09:19 | disposition home or self-care (01) ==
LOC: ED 06:34 → EROBSV 07:47 → OBSVTOIN 11:29 → INTOOBSV 11:29 → ERH 11:35 → 5RNO 13:12
PROVIDERS: ADMIT Internal Medicine; ATTEND Internal Medicine
DX: K57.32 Diverticulitis of large intestine without perforation or abscess without bleeding (principal); F32.9 Major depressive disorder, single episode, unspecified; K21.9 Gastro-esophageal reflux disease without esophagitis; F17.210 Nicotine dependence, cigarettes, uncomplicated
CPT/HCPCS: 36415; 74177; 80053; 80324; 80345; 80346; 80349; 80353; 80358; 80361; 81003; 83690; 83992; 85025; 87040; 96361; 96365; 96375; 96376; 99284; G0378; J0696; J0744; J2270; J7040; Q9967

== ENCOUNTER 2017-01-08 07:23 | Day surgery (SDC) | payer MEDICAID ==
[2017-01-08] MEDS ORDERED: Propofol 10 mg/ml Inj (20 ML) ONE (08:32)
[2017-01-08] MEDS ORDERED: Lactated Ringer's 1,000 ML IV SCH (09:50)
[2017-01-08 10:33] VITALS: RESP 18; TEMP 98.3; O2SAT 99
[2017-01-08 10:52] VITALS: BP 114/77; PULSE 78
== END 2017-01-08 11:19 | disposition home or self-care (01) ==
LOC: ENDO 07:23
PROVIDERS: ATTEND Internal Medicine Gastroenterology
DX: K22.70 Barrett's esophagus without dysplasia (principal); K29.70 Gastritis, unspecified, without bleeding; K57.92 Diverticulitis of intestine, part unspecified, without perforation or abscess without bleeding; D12.2 Benign neoplasm of ascending colon; D12.3 Benign neoplasm of transverse colon; D12.5 Benign neoplasm of sigmoid colon
CPT/HCPCS: 43239; 45380; 88305; 88312; J2704; J3010; J7040; J7120

== ENCOUNTER 2017-01-16 21:45 | Emergency (ER) | payer MEDICAID ==
[2017-01-16 21:45] VITALS: BMI 26.6
[2017-01-16 22:00] VITALS: TEMP 98.2; O2SAT 100
--- NOTE | 2017-01-16 22:24 | ED PDOC ---
Arrival/HPI - General Historian: Patient - History of Present Illness Severity Level: 5 <Columba Hollis - Last Filed: 01/17/17 04:16> <Kareem Shelby - Last Filed: 01/17/17 05:55> - General Chief Complaint: Male Genitourinary Time Seen by Provider: 01/16/17 21:55 - History of Present Illness Narrative History of Present Illness (Text): 01/16/17 22:16 Patient is a 41 y/o with pmh of psychiatric disorders, and Garrison esophagus presenting with right sided scrotal pain. Patient states he has chronic lower back pain, was saw a chiropractor this Wednesday and had his back cracked, then when he went home he wasn't able to sleep. When he lies down he feels uncomfortable, feels like the scrotum is touching to the leg. Pain is mostly on the right groin and the right side of his scrotum. Admits to back pain only when he lies down. Takes muscle relaxant at home for back pain. Denies fever, chills, n/v/v. Denies trauma to the genital region. Reports he is not sexually active. Denies dysurea, hematuria, hesitancy or increased frequency. Denies penile discharge or rash. Denies cp, or sob. 01/16/17 22:23 01/17/17 01:26 (Columba Hollis) Past Medical History - Provider Review Nursing Documentation Reviewed: Yes - Travel History Have you recently traveled outside [place] w/in the past 3 mons?: No - Infectious Disease Hx of Infectious Diseases: None - Tetanus Immunization Tetanus Immunization: Unknown - Past Medical History Past Medical History: No Previous - Cardiac Hx Pacemaker: No - Pulmonary Hx Respiratory Disorders: No Hx Tuberculosis: No - Neurological Hx Paralysis: No - HEENT Hx HEENT Disorder: No - Renal Hx Renal Disorder: No - Endocrine/Metabolic Hx Endocrine Disorders: No - Hematological/Oncological Hx Blood Transfusions: No - Integumentary Hx Dermatological Disorder: No - Musculoskeletal/Rheumatological Hx Musculoskeletal Disorders: Yes (JOINT PAIN) - Gastrointestinal Hx Gastrointestinal Disorders: Yes Hx Gastroesophageal Reflux: Yes - Genitourinary/Gynecological Hx Genitourinary Disorders: No Hx Sexually Transmitted Diseases: No - Psychiatric Hx Emotional Abuse: No Hx Physical Abuse: No Hx Substance Use: Yes (HX HEROIN USE OVER 5 YRS AGO PER PT) - Surgical History Other/Comment: facial cyst removed - Anesthesia Hx Anesthesia Reactions: No Hx Malignant Hyperthermia: No - Suicidal Assessment Feels Threatened In Home Enviroment: No <Columba Hollis - Last Filed: 01/17/17 04:16> - Provider Review Nursing Documentation Reviewed: Yes <Kareem Shelby - Last Filed: 01/17/17 05:55> Family/Social History Family/Social History: No Known Family HX Smoking Status: Heavy Smoker > 10 Cigarettes Daily Hx Alcohol Use: Yes (H/O OF ETOH ABUSE QUIT 10/2013) Amount per day: 2 Hx Substance Use: Yes (HX HEROIN USE OVER 5 YRS AGO PER PT) Substance used: marijuana Hx Substance Use Treatment: No <Columba Hollis - Last Filed: 01/17/17 04:16> - Physician Review Nursing Documentation Reviewed: Yes Family/Social History: No Known Family HX <Kareem Shelby - Last Filed: 01/17/17 05:55> Allergies/Home Meds <Columba Hollis - Last Filed: 01/17/17 04:16> <Kareem Shelby - Last Filed: 01/17/17 05:55> Allergies/Adverse Reactions: Allergies Sulfa (Sulfonamide Antibiotics) Allergy (Verified 10/31/16 15:35) RASH Home Medications: Home Meds Medication Instructions Recorded Confirmed Lamotrigine [Lamictal Odt] 200 mg PO HS 01/10/15 01/16/17 Omeprazole [Prilosec] 40 mg PO DAILY 01/10/15 01/16/17 Mirtazapine [Remeron] 45 mg PO HS 10/31/16 01/16/17 QUEtiapine [SEROquel XR] 400 mg PO HS 10/31/16 01/16/17 Review of Systems - Review of Systems Musculoskeletal: Back Pain <Columba Hollis - Last Filed: 01/17/17 04:16> - Physician Review All systems were reviewed & negative as marked: Yes - Review of Systems Constitutional: Normal. absent: Fevers Eyes: Normal ENT: Normal Respiratory: Normal. absent: SOB Cardiovascular: Normal. absent: Chest Pain Gastrointestinal: Normal. absent: Diarrhea, Nausea, Vomiting Genitourinary Male: Other (+scrotal/groin pain) Musculoskeletal: Back Pain Skin: Normal. absent: Rash Neurological: Normal Endocrine: Normal Hemo/Lymphatic: Normal Psychiatric: Normal <Kareem Shelby - Last Filed: 01/17/17 05:55> Physical Exam Temperature: Afebrile Blood Pressure: Normal Pulse: Regular Respiratory Rate: Normal Appearance: Positive for: Well-Appearing, Non-Toxic, Comfortable Pain Distress: None Mental Status: Positive for: Alert and Oriented X 3 - Systems Exam Head: Present: Atraumatic, Normocephalic Pupils: Present: PERRL Extroacular Muscles: Present: EOMI Conjunctiva: Present: Normal Mouth: Present: Dry Neck: Present: Normal Range of Motion Respiratory/Chest: Present: Clear to Auscultation, Good Air Exchange. No: Respiratory Distress, Accessory Muscle Use Cardiovascular: Present: Regular Rate and Rhythm, Normal S1, S2. No: Murmurs Abdomen: Present: Normal Bowel Sounds. No: Tenderness, Distention, Hernias Genitourinary Male: Present: Normal External Genitalia, Erythema. No: Lesions, Testicle Tenderness, Penile Swelling, Hernias Back: Present: Normal Inspection. No: CVA Tenderness, Midline Tenderness, Paraspinal Tenderness, Pain with Leg Raise Upper Extremity: Present: Normal Inspection. No: Cyanosis, Edema Lower Extremity: Present: Normal Inspection. No: Edema Neurological: Present: GCS=15 Skin: Present: Warm, Dry Psychiatric: Present: Alert, Oriented x 3, Normal Insight <Columba Hollis - Last Filed: 01/17/17 04:16> Medical Decision Making Re-evaluation Time: 01:10 Reassessment Condition: Re-examined, Improving,but remains with symptoms - Lab Interpretations I have reviewed the lab results: Yes (All normal except WBC of 13.7) - RAD Interpretation Footwear Machinery Instructor: Radiologist <Columba Hollis - Last Filed: 01/17/17 04:16> - Lab Interpretations I have reviewed the lab results: Yes - RAD Interpretation Footwear Machinery Instructor: Radiologist <Kareem Shelby - Last Filed: 01/17/17 05:55> ED Course and Treatment: 01/17/17 01:13 CT abdomen and pelvis with no urolithiasis. Testicular u/s with no testicular torsion. Small right epidymal cysts, trace hydrocele. 01/17/17 01:14 01/17/17 01:15 01/17/17 01:25 Reports still have the pain the right scrotum, and back, but mildly improved. (Columba Hollis) Pt seen and evaluated with medical laboratory technical officer. Pt, whose past medical history includes depression, alcohol abuse, and Garrison's esophagus, presented for right -sided scrotal pain and right groin pain. Aware and agree with HPI, clinical findings, plan, and management. Plan: -- CT Abdomen and Pelvis -- US Duplex Testes -- Labs -- Urinalysis -- Reassess and disposition (Kareem Shelby) - Lab Interpretations Lab Results: 01/16/17 22:00 01/16/17 22:00 Lab Results 01/16/17 22:00: Sodium 138, Potassium 3.7, Chloride 97, Carbon Dioxide 27, Anion Gap 18, BUN 14, Creatinine 1.0, Est GFR ( Amer) > 60, Est GFR (Non- Af Amer) > 60, Random Glucose 112 H, Calcium 10.5, Total Bilirubin 0.6, AST 66 H , ALT 95 H, Alkaline Phosphatase 86, Total Protein 8.9 H, Albumin 5.1 H, Globulin 3.8, Albumin/Globulin Ratio 1.3 01/16/17 22:00: Urine Color Yellow, Urine Appearance Clear, Urine pH 6.5, Ur Specific [place] 1.025, Urine Protein Negative, Urine Glucose (UA) Negative, Urine Ketones Negative, Urine Blood Negative, Urine Nitrate Negative, Urine Bilirubin Negative, Urine Urobilinogen 0.2, Ur Leukocyte Esterase Negative 01/16/17 22:00: WBC 13.7 H D, RBC 5.31, Hgb 15.8, Hct 43.5, MCV 81.9, MCH 29.8, MCHC 36.3, RDW 12.9, Plt Count 228, MPV 12.3 H, Gran % 57.3, Lymph % (Auto) 33.5 , [place] % (Auto) 8.3 H, Eos % (Auto) 0.7 L, Baso % (Auto) 0.2, Gran # 7.82 H, Lymph # 4.6 H, [place] # 1.1 H, Eos # 0.1, Baso # 0.03 - RAD Interpretation Narrative RAD Interpretations (Text): US Testes Duplex: Right testicle: No mass. No torsion. Left testicle: No mass. No torsion. Epididymides: Small RIGHT epididymal cyst. Scrotum: Trace hydroceles. IMPRESSION: 1. No sonographic evidence of testicular torsion. 2. Incidental/non-acute findings are described above. Thank you for allowing us to participate in the care of your patient. CT Abdomen and Pelvis shows: Lower thorax: Minimal atelectasis/scarring. Coronary artery calcifications. Small cyst or bulla RIGHT middle lobe. ABDOMEN: Liver: Unremarkable. Gallbladder and bile ducts: No calcified stones. No ductal dilation. Pancreas: Unremarkable. No ductal dilation. Spleen: Small splenic calcification. No splenomegaly. Adrenals: No mass. Kidneys and ureters: No renal calculi. No hydronephrosis. Stomach and bowel: No definite mural thickening. No obstruction. Appendix: Normal caliber. No inflammation. PELVIS: Bladder: Unremarkable. No stones. Reproductive: Unremarkable as visualized. ABDOMEN and PELVIS: Intraperitoneal space: No significant fluid collection. No free air. Bones/joints: No acute fracture. Soft tissues: Tiny umbilical hernia containing fat. Vasculature: Mild atherosclerotic disease. Lymph nodes: No pathologically enlarged lymph nodes. IMPRESSION: 1. No CT evidence of urolithiasis. 2. Incidental/non-acute findings are described above. (Kareem Shelby) Radiology Orders: 01/16/17 22:14 TESTES DUPLEX COMPLETE [US] Stat 01/16/17 22:34 ABD & PELVIS W/O PO OR IV CONT [CT] Stat - Medication Orders Current Medication Orders: Discontinued Medications Ketorolac Tromethamine (Toradol) 30 mg IVP ONCE ONE Stop: 01/17/17 00:24 Last Admin: 01/17/17 00:47 Dose: 30 mg Disposition/Present on Arrival - Present on Arrival Any Indicators Present on Arrival: No History of DVT/PE: No History of Uncontrolled Diabetes: No Urinary Catheter: No History of Decub. Ulcer: No History Surgical Site Infection Following: None - Disposition Have Diagnosis and Disposition been Completed?: Yes Disposition Time: 01:25 <Columba Hollis - Last Filed: 01/17/17 04:16> <Kareem Shelby - Last Filed: 01/17/17 05:55> - Disposition Diagnosis: Back pain Disposition: HOME/ ROUTINE Condition: IMPROVED Discharge Instructions (ExitCare): Acute Low Back Pain (ED) Additional Instructions: Please continue taking the muscle relaxant. Take the naproxen for pain as needed. Follow up with your PMD Go to the nearest emergency room if you experience chest, shortness of breath, fever or chills. Prescriptions: Naproxen 500 mg PO Q12 PRN #30 tab PRN Reason: Pain, Moderate (4-7) Referrals: [facility] [place] [Outside] - Follow up with primary
[2017-01-16 22:50] LABS: ADD MANUAL DIFF? NO
[2017-01-16 23:05] LABS: BASO # 0.03 K/mm3 (0.0-2.0); BASO % 0.2 % (0.0-3.0); EOS # 0.1 (0.0-0.7); EOS % 0.7 % (1.5-5.0); GRAN # 7.82 (1.4-6.5); GRAN % 57.3 % (50.0-68.0); HEMATOCRIT 43.5 % (42.0-52.0); LYMPH # 4.6 (1.2-3.4); LYMPH % 33.5 % (22.0-35.0); MEAN CELL VOLUME 81.9 fL (80.0-105.0); MEAN CORPUSCULAR HEMOGLOBIN 29.8 pg (25.0-35.0); MEAN CORPUSCULAR HGB CONC 36.3 g/dl (31.0-37.0); MEAN PLATELET VOLUME 12.3 fl (7.0-11.0); MONO # 1.1 (0.1-0.6); MONO % 8.3 % (1.0-6.0); PLATELET COUNT 228 10^3/uL (120.0-450.0); RED CELL DISTRIBUTION WIDTH 12.9 % (11.5-14.5); WHITE BLOOD COUNT 13.7 10^3/ul (4.5-11.0)
[2017-01-16 23:06] LABS: PH,URINE 6.5 (4.7-8.0); URINE BILIRUBIN NEGATIVE (NEGATIVE); URINE BLOOD NEGATIVE (NEGATIVE); URINE GLUCOSE (UA) NEGATIVE (NEGATIVE); URINE KETONE NEGATIVE (NEGATIVE); URINE LEUKOCYTE ESTERASE NEGATIVE Leu/uL (NEGATIVE); URINE PROTEIN NEGATIVE mg/dL (<30 mg/dL); URINE UROBILINOGEN 0.2 E.U./dL (<1 E.U./dL)
[2017-01-16 23:08] LABS: ALKALINE PHOSPHATASE 86 U/L (38-133); ALT/SGPT 95 U/L (7-56); AST/SGOT 66 U/L (15-59); BILIRUBIN,TOTAL 0.6 mg/dL (0.2-1.3); BLOOD UREA NITROGEN 14 mg/dL (7-21); CALCIUM 10.5 mg/dL (8.4-10.5); CARBON DIOXIDE 27 mmol/L (21-33); CHLORIDE 97 mmol/L (95-110); GFR AFRICAN-AMERICAN > 60; GLUCOSE,RANDOM 112 mg/dL (70-110); POTASSIUM 3.7 mmol/L (3.6-5.0); SODIUM 138 mmol/L (132-148); TOTAL PROTEIN 8.9 g/dL (5.8-8.3)
[2017-01-16 23:13] LABS: URINE APPEARANCE CLEAR (CLEAR); URINE COLOR YELLOW (YELLOW)
[2017-01-16 23:14] LABS: ALB/GLOB RATIO 1.3 (1.1-1.8)
--- NOTE | 2017-01-16 23:17 | US ---
EXAM: US Scrotum CLINICAL HISTORY: 41 years old, male; Pain; Scrotum pain; Additional info: Testicular and scrotal pain. TECHNIQUE: Real-time ultrasound of the scrotum with color Doppler and image documentation. COMPARISON: No relevant prior studies available. FINDINGS: Right testicle: No mass. No torsion. Left testicle: No mass. No torsion. Epididymides: Small RIGHT epididymal cyst. Scrotum: Trace hydroceles. IMPRESSION: 1. No sonographic evidence of testicular torsion. 2. Incidental/non-acute findings are described above.
--- NOTE | 2017-01-16 23:43 | CT ---
EXAM: CT Abdomen and Pelvis Without Intravenous Contrast CLINICAL HISTORY: 41 years old, male; Pain; Abdominal pain; Flank; Right; Patient HX: Rt flank pain TECHNIQUE: Axial computed tomography images of the abdomen and pelvis without intravenous contrast. This CT exam was performed using one or more of the following dose reduction techniques: automated exposure control, adjustment of the mA and/or kV according to patient size, and/or use of iterative reconstruction technique. Coronal and sagittal reformatted images were created and reviewed. COMPARISON: CT - ABD PELVIS IV CONTRAST ONLY 10/31/2016 9:48:20 AM FINDINGS: Lower thorax: Minimal atelectasis/scarring. Coronary artery calcifications. Small cyst or bulla RIGHT middle lobe. ABDOMEN: Liver: Unremarkable. Gallbladder and bile ducts: No calcified stones. No ductal dilation. Pancreas: Unremarkable. No ductal dilation. Spleen: Small splenic calcification. No splenomegaly. Adrenals: No mass. Kidneys and ureters: No renal calculi. No hydronephrosis. Stomach and bowel: No definite mural thickening. No obstruction. Appendix: Normal caliber. No inflammation. PELVIS: Bladder: Unremarkable. No stones. Reproductive: Unremarkable as visualized. ABDOMEN and PELVIS: Intraperitoneal space: No significant fluid collection. No free air. Bones/joints: No acute fracture. Soft tissues: Tiny umbilical hernia containing fat. Vasculature: Mild atherosclerotic disease. Lymph nodes: No pathologically enlarged lymph nodes. IMPRESSION: 1. No CT evidence of urolithiasis. 2. Incidental/non-acute findings are described above.
[2017-01-17 02:07] VITALS: BP 107/58; PULSE 92; RESP 18
== END 2017-01-17 01:50 | disposition home or self-care (01) ==
LOC: ED 21:45
DX: M54.9 Dorsalgia, unspecified (principal)
CPT/HCPCS: 74176; 80053; 81003; 85025; 93975; 96374; 99284; J1885